=== PATIENT | female | born 1995 | race African-American/Black ===

== ENCOUNTER 2016-08-30 13:41 | Emergency (ER) | payer OTHER ==
[~2016-08-30] VITALS: Ht 160 cm; Wt 77.1 kg
[2016-08-30 13:51] VITALS: BP 127/57
[2016-08-30] MEDS ORDERED: AZIT250T PO (13:57)
--- NOTE | 2016-08-30 13:57 | PHYS DOC ---
Past Medical History Past Medical History: No Pertinent History, Other Additional Past Medical Histor: chronic back pain Past Surgical History: No Surgical History Alcohol Use: None Drug Use: None Adult General Chief Complaint Chief Complaint: SORE THROAT HPI HPI Patient is a 21 year old female with no significant medical history who presents with sore throat for couple days. Patient denies any fevers states she' s had intermittent subjective fevers. Patient denies any chance she is . Review of Systems Review of Systems Constitutional: fever Eyes: Denies change in visual acuity, redness, or eye pain [] HENT: sore throat [] Respiratory: see HPI Cardiovascular: No additional information not addressed in HPI [] GI: Denies abdominal pain, nausea, vomiting, bloody stools or diarrhea [] : Denies dysuria or hematuria [] Musculoskeletal: Denies back pain or joint pain [] Integument: Denies rash or skin lesions [] Neurologic: Denies headache, focal weakness or sensory changes [] Endocrine: Denies polyuria or polydipsia [] Allergies Allergies Allergies Coded Allergies Type Severity Reaction Last Updated Verified Penicillins Allergy Unknown 10/13/14 No Physical Exam Physical Exam Constitutional: Well developed, well nourished, no acute distress, non-toxic appearance. [] HENT: Normocephalic, atraumatic, bilateral external ears normal, oropharynx moist, no oral exudates, nose normal. [] Posterior pharynx with mild erythema and petechia. +2 anterior cervical adenopathy Eyes: PERRLA, EOMI, conjunctiva normal, no discharge. [] Neck: Normal range of motion, no tenderness, supple, no stridor. [] Cardiovascular:Heart rate regular rhythm, no murmur [] Lungs & Thorax: Bilateral breath sounds clear to auscultation [] Abdomen: Bowel sounds normal, soft, no tenderness, no masses, no pulsatile masses. [] Skin: Warm, dry, no erythema, no rash. [] Back: No tenderness, no CVA tenderness. [] Extremities: No tenderness, no cyanosis, no clubbing, ROM intact, no edema. [] Neurologic: Alert and oriented X 3, normal motor function, normal sensory function, no focal deficits noted. [] Psychologic: Affect normal, judgement normal, mood normal. [] EKG EKG [] Radiology/Procedures Radiology/Procedures [] Course & Med Decision Making Course & Med Decision Making Pertinent Labs and Imaging studies reviewed. (See chart for details) Physical exam is consistent with tonsillitis. She was discharged with azithromycin. Saltwater gargles recommended. Tylenol/Motrin for pain or fever. Follow up with primary care doctor in 1-2 weeks. Dragon Disclaimer Dragon Disclaimer This electronic medical record was generated, in whole or in part, using a voice recognition dictation system. Departure Departure Impression: Primary Impression: Acute tonsillitis Additional Impression: Fever Disposition: HOME, SELF-CARE Condition: STABLE Referrals: CHENTE MARIE (PCP) Follow-up with your own doctor in one week Patient Instructions: Fever, Tonsillitis, [id number] Additional Instructions: You were seen for tonsillitis. Take the prescribed antibiotics until completed. Follow-up with your own doctor in 1-2 weeks. Use saltwater gargles. Take Tylenol /Motrin for pain or fever. Scripts Azithromycin (ZITHROMAX) 250 Mg Tablet 1 PKG PO UD, #1 PKG Prov: DOTTIE DC CONTROL PANEL OPERATOR 08/30/16 Problem Qualifiers Primary Impression: Acute tonsillitis Pharyngitis/tonsillitis etiology: unspecified etiology Qualified Codes: J03.90 - Acute tonsillitis, unspecified Additional Impression: Fever Fever type: unspecified Qualified Codes: R50.9 - Fever, unspecified DOTTIE DC CONTROL PANEL OPERATOR August 30, 2016 13:57
== END 2016-08-30 14:04 | disposition home or self-care (01) ==
LOC: ER 14:04
DX: J03.90 Acute tonsillitis, unspecified (principal); R50.9 Fever, unspecified; G89.29 Other chronic pain; Z88.0 Allergy status to penicillin
CPT/HCPCS: 99283